=== PATIENT | female | born 2005 | race African-American/Black ===

== ENCOUNTER 2025-10-11 16:28 | Emergency (ER) | payer MEDICAID, SELFPAY ==
[2025-10-11 16:35] VITALS: BP 112/74; PULSE 138; RESP 18; TEMP 36.7; O2SAT 98; BMI 26.8
--- NOTE | 2025-10-11 16:37 | ED.SKABFB ---
HPI - Skin/Abscess/Foreign Bdy General Chief complaint: Skin/Abscess/Foreign Body Stated complaint: Cyst Time Seen by Provider: 10/11/25 17:23 Source: patient Mode of arrival: ambulatory Limitations: no limitations History of Present Illness ED Provider: Dr. Eduardo HPI narrative: 20-year-old female presented hospital today for evaluation of pilonidal cyst. This has been going on for past 4 day worsening pain. Patient has pilonidal cyst in the past. Related Data Previous Rx's ?Medication ?Instructions ?Recorded doxycycline hyclate 100 mg capsule 100 mg PO BID 7 days #14 caps 10/11/25 Allergies Allergy/AdvReac Type Severity Reaction Status Date / Time No Known Allergies Allergy Verified 10/11/25 16:37 Review of Systems Review of Systems: Pertinent review of systems as mentioned in HPI. All other system otherwise negative. PMFSH Past Medical History [facility] Narrative: Pilonidal cyst Social History Social History Advance Directives: No Advance Directives Information Provided: No Physical Exam Exam: Exam: General: Pleasant, no distress, interacting appropriately Head: Normacephalic, atraumatic : Swelling around the cleft. On the left gluteus Skin: Warm and dry Psychiatric: Appropriate mood and thoughts Vital Signs: Vital Signs: Last Vital Signs Temp 98.1 F 10/11/25 19:25 Pulse 138 H 10/11/25 19:25 Resp 18 10/11/25 19:25 BP 112/74 10/11/25 19:25 Pulse Ox 98 10/11/25 19:25 O2 Del Method Room Air 10/11/25 19:25 BMI result Body Mass Index 26.8 Course Course Course Narrative: Kaia Duval [employer] 10/11 1637 This is a rapid medical exam. Deferred additional HPI, ROS, PE to primary provider. 20 yo female with history of reoccurrent pilonidal abscess here with same. Unable to visualize in triage VSS Medications Administered Discontinued Medications Generic Name Dose Route Start Last Admin Trade Name Freq PRN Reason Stop Dose Admin Acetaminophen 975 mg 10/11/25 17:46 10/11/25 17:59 Acetaminophen 325 Mg Tablet PO 10/11/25 17:47 975 mg ONCE ONE Administration Lidocaine/Epinephrine 10 ml 10/11/25 17:24 10/11/25 17:29 Lidocaine Hcl 1%/Epi 1:100,000 10 Ml Vial SUBCUT 10/11/25 17:25 10 ml ONCE ONE Administration Lorazepam 1 mg 10/11/25 17:46 10/11/25 17:59 Lorazepam 1 Mg Tablet PO 10/11/25 17:47 1 mg ONCE ONE Administration Oxycodone HCl 5 mg 10/11/25 17:46 10/11/25 17:59 Oxycodone Hcl Immed Release 5 Mg Tablet PO 10/11/25 17:47 5 mg ONCE ONE Administration Medical Decision Making Medical Decision Making MDM Narrative: 20-year-old female presented hospital today for evaluation of the pilonidal cyst this has been going on for past 4 days. Oxycodone p.o. and Ativan p.o. was given to the patient for comfort. I did perform a localized anesthetic with 1% lidocaine. I was able to express approximately 10 cc of pus drainage. ID loculated the area as well with a hemostat. Patient tolerated the procedure well. Pressure was applied over the incision site. And a Band-Aid was placed over the incision. I urged the patient to allow the wound to spontaneously drain keep the area clean and dry as best as possible. Referral to General surgery Clinic will be provided to the patient for her recurrent pilonidal cyst. We will start patient on doxycycline for antibiotic coverage. Differential Diagnosis Differential Diagnoses: The differential diagnosis associated with the presentation includes Pilonidal cyst Procedures Abscess I/D Site: other (Pilonidal cyst) Side (if applicable): left Sedation/analgesia: other (PO oxycodone and ativan) Local Anesthetic: lidocaine 1% and with epi Amount of anesthesia used (mL): 4 Technique: incised with blade Amount of fluid expressed (mL): 10 Irrigation: Yes Packing used?: none Discharge Plan Discharge Clinical Impression: Pilonidal cyst Patient Disposition: Home, Self-Care Instructions: Pilonidal Cyst (ED) Additional Instructions: Allow the wound to drain. This should heal up on its own keep it as clean as dry possible Prescriptions: New doxycycline hyclate 100 mg capsule 100 mg PO BID 7 Days Qty: 14 0RF Referrals: [facility] [place] General Surgeons [Provider Group, General Surgery] Clinical Impression: Pilonidal cyst Stand Alone Forms: Work/School Release Interventions: ED Discharge Assessment Last Done: 10/11/25 19:25 Discharge Date/Time: 10/11/25 19:26 Print Language: Guyanese
[2025-10-11] MEDS: Lidocaine HCl 1%/Epi 1:100,000 10 ML VIAL SUBCUT (17:29)
[2025-10-11] MEDS: oxyCODONE HCl Immed Release 5 MG TABLET PO (17:59)
[2025-10-11 19:25] VITALS: BP 112/74; PULSE 138; RESP 18; TEMP 36.7; O2SAT 98
== END 2025-10-11 19:26 | disposition home or self-care (01) ==
PROVIDERS: Emergency Provider Student in an Organized Health Care Education/Training Program
DX: L05.91 Pilonidal cyst without abscess (principal)
CPT/HCPCS: 10080; 99283; 99284; J2004